=== PATIENT | male | born 1945 | race Hispanic/Latino ===

== ENCOUNTER 2019-03-12 07:27 | Day surgery (SDC) | payer MEDICARE ==
[~2019-03-12] VITALS: Ht 162.6 cm; Wt 93.9 kg
[~2019-03-12 07:27] MED LIST: ALLOPURINOL300 MG PO; AMARYL4 MG PO; ASPIRIN EC325 MG PO; ELIQUIS5 MG PO; FLECAINIDE ACE100 MG PO; LANSOPRAZOLE30 M1 PO; LASIX20 MG PO; LEVOTHYROXINE150 MCG PO; LIPITOR20 MG PO; MAGNESIUM400 M1 PO; METFORMIN HCL1000 MG PO; METFORMIN HCL500 M2 PO; METFORMIN HCL750 MG PO; METOPROLOL TART50 MG PO; MOTRIN IB200 MG PO; MULTI VITAMIN1 EACH PO; NITROGLYCERIN0.4 MG SL; NORCO 5-325 TA1 EACH PO; OMEPRAZOLE20 MG PO; PRAVASTATIN SOD40 MG PO; PREDNISONE20 MG PO; PREVACID30 MG PO; TYLENOL325 MG PO; VENTOLIN HFA18 GM INH
[2019-03-12] MEDS ORDERED: ELIQUIS5 MG PO (07:45)
--- NOTE | 2019-03-12 09:58 | NUR ---
03/12/19 0958 Elif Hernandez 0947- PT ARRIVES TO PACU NONAROUSABLE TO NOXIOUS STIMULI WITH AN OPA IN PLACE. RESP EVEN AND UNLABORED. OXYGEN SAT HIGH 90'S TO 100% ON 10L VIA MASK. 0949- OXYGEN TITRATED DOWN TO 6L VIA MASK. 0950- PT AROUSABLE AND TRYING TO PULL OUT OPA. PT INSTRUCTIONS TO OPEN HIS MOUTH TO REMOVE THE OPA. PT IS ABLE TO FOLLOW THIS COMMAND AND OPA REMOVED. 0957- PT ATTEMPTED TO USE A URINAL TO URINATE WITHOUT SUCCESS. PT REPORTS ABD CRAMPING. EDUCATED TO PASS FLATUS. PT STATES UNDERSTANDING.
--- NOTE | 2019-03-12 14:36 | EKG ---
[facility] [address] [facility] [place], [place] [address] Signed Sinus bradycardia Otherwise normal ECG Confirmed by CARY BUSTAMANTE MD ([id number]) on 03/12/2019 2:36:26 PM Electronically Signed By: CARY BUSTAMANTE MD 03/12/19 1436 PATIENT NAME: ASHLEY ROCHA Electrocardiogram DATE OF : 43 PHYSICIAN: CARY BUSTAMANTE MD REPORT #: [id number] REPORT IS CONFIDENTIAL AND NOT TO BE RELEASED WITHOUT AUTHORIZATION
--- NOTE | 2019-03-12 17:27 | OR ---
[facility] [address] [place], [place] [address] Signed DATE OF OPERATION: 03/12/2019 SURGEON: Anabelle Clark MD PREOPERATIVE DIAGNOSIS: Diarrhea. No prior colonoscopy. POSTOPERATIVE DIAGNOSIS: Multiple polyps (nine). PROCEDURE: Total colonoscopy to cecum with mucosal lift/tattoo snare excision x3, hot snare polypectomy x3, and cold morcellation polypectomy x3. ANESTHESIA: Propofol infusion; Anabelle Gonzalez CRNA. INDICATION: This 73-year-old white man (Basque in culture) is a patient of Nico Sam and known to me from the past for various other problems. He is considered to have diarrhea and is uncertain if this might be related to metformin. He has no known family history of colon cancer, though his mother had liver cancer of some type in the past. The patient has never had colonoscopy. On the basis of his symptoms and no prior history of colonoscopy, he is referred for consideration of colonoscopy. The risks of bleeding, infection, and perforation were reviewed with him. He understands and wished to proceed. FINDINGS: The prep was good. Complete colonoscopy was undertaken to the cecum. He had a multitude of polyps most dominantly in the right and right transverse area. A few scattered polyps were on the left side. There was no sign of colitis. He did have some internal hemorrhoidal changes. DESCRIPTION OF PROCEDURE: The patient was brought to the endoscopy suite and placed in lateral decubitus position, given intravenous sedation with propofol infusional technique by the front office administrator. A digital rectal examination was normal. The Olympus video colonoscope was passed in the rectum and manipulated throughout the colon. The scope was ultimately passed to the cecum. The ileocecal valve and Electronically Signed By: ANABELLE CLARK MD 03/12/19 1727 PATIENT NAME: ASHLEY ROCHA OPERATIVE REPORT DATE OF : 43 REPORT #: [id number] PHYSICIAN: ANABELLE CLARK MD PCP: NICO SAM MD REPORT IS CONFIDENTIAL AND NOT TO BE RELEASED WITHOUT AUTHORIZATION [facility] [address] [place], [place] [address] Signed appendiceal orifice were normal. Scope was withdrawn from that point and polyps were noted in the right colon. Initial polyp was excised with hot snare polypectomy technique. A hemoclip was applied for oozing. Two additional polyps were then seen, both larger and excised with hot snare polypectomy technique. At the region of hepatic flexure, there were three separate polyps, one of them broad-based. All were treated with mucosal lift technique including endoscopic tattoo mucosal lift and hot snare polypectomy technique. Further withdrawal of scope showed another polyp in the right transverse colon, which was excised with cold morcellation technique. Two additional polyps, one in the sigmoid and another in the sigmoid were excised with cold morcellation technique. In aggregate, nine polyps were excised. The scope was removed. The patient was taken to recovery room in good condition. Procedure was rather lengthy, lasting an hour. ASSESSMENT: Multiple polyps. I would recommend repeat colonoscopy in one year to assess any missed polyps given the extent of problems. MD JAXON Martines/NEEL /[id number] cc: Nico Sam MD Copies: ~ Electronically Signed By: ANABELLE CLARK MD 03/12/19 1727 PATIENT NAME: ASHLEY ROCHA OPERATIVE REPORT DATE OF : 43 REPORT #: [id number] PHYSICIAN: ANABELLE CLARK MD PCP: NICO SAM MD REPORT IS CONFIDENTIAL AND NOT TO BE RELEASED WITHOUT AUTHORIZATION
--- NOTE | 2019-03-13 11:19 | PATH ---
[facility] [address] [facility] [place], [place] [address] Signed SPECIMEN(S): A ASCENDING POLYP SPECIMEN(S): B ASCENDING POLYP SPECIMEN(S): C ASCENDING POLYP SPECIMEN(S): D HEPATIC FLEXURE SPECIMEN(S): E HEPATIC FLEXURE SPECIMEN(S): F HEPATIC FLEXURE SPECIMEN(S): G TRANSVERSE POLYP SPECIMEN(S): H SIGMOID POLYP SPECIMEN(S): I SIGMOID POLYP SPECIMEN SOURCE: A. ASCENDING POLYP B. ASCENDING POLYP C. ASCENDING POLYP D. HEPATIC FLEXURE E. HEPATIC FLEXURE F. HEPATIC FLEXURE G. TRANSVERSE POLYP H. SIGMOID POLYP I. SIGMOID POLYP CLINICAL HISTORY: Diarrhea. Post op: Multiple polyps. MICROSCOPIC DESCRIPTION: Histologic sections of all submitted blocks are examined by light microscopy. These findings, together with the gross examination, support the pathologic diagnosis. FINAL PATHOLOGIC DIAGNOSIS: A. Colon, ascending, polyp, polypectomy: - Tubular adenoma. - Negative for high-grade dysplasia or malignancy. B. Colon, ascending, polyp, polypectomy: - Fragments of tubular adenoma. - Negative for high-grade dysplasia or malignancy. C. Colon, ascending, polyp, polypectomy: - Fragments of tubular adenoma. - Negative for high-grade dysplasia or malignancy. D. Colon, hepatic flexure, polyp, polypectomy: - Tubular adenoma. - Negative for high-grade dysplasia or malignancy. PATIENT NAME: ASHLEY ROCHA PATHOLOGY DATE OF : 43 REPORT #: [id number] PHYSICIAN: DOUGLAS HEREDIA PCP: BRENT SAM MD REPORT IS CONFIDENTIAL AND NOT TO BE RELEASED WITHOUT AUTHORIZATION [facility] [address] [place], [place] [address] Signed E. Colon, hepatic flexure, polyp, polypectomy: - Tubular adenoma. - Negative for high-grade dysplasia or malignancy. F. Colon, hepatic flexure, polyp, polypectomy: - Fragments of tubular adenoma. - Negative for high-grade dysplasia or malignancy. G. Colon, transverse, polyp, polypectomy: - Tubular adenoma. - Negative for high-grade dysplasia or malignancy. H. Colon, sigmoid, polyp, polypectomy: - Fragment of tubular adenoma. - Negative for high-grade dysplasia or malignancy. I. Colon, sigmoid, polyp, polypectomy: - Tubular adenoma. - Negative for high-grade dysplasia or malignancy. NAL:cml:C2NR GROSS DESCRIPTION: Nine specimens are received in nine containers, labeled "JZ." A. The specimen, labeled "JZ, #1 and ascending polyp on the requisition," is received in formalin and consists of a 0.6 x 0.4 x 0.3 cm, soft pink, smooth, polypoid portion of tissue that is submitted in toto in cassette (A1). B. The specimen, labeled "JZ, #2 and ascending polyp on the requisition," is received in formalin and consists of two soft pink, smooth polypoid portions of tissue that measure 0.3 x 0.2 x 0.2 cm and 0.5 x 0.4 x 0.3 cm. The specimen is submitted in toto in cassette (B1). C. The specimen, labeled "JZ, #3 and ascending polyp on the requisition," is received in formalin and consists of three soft pink, smooth irregular portions of tissue that vary from 0.3 x 0.2 x 0.2 cm to 0.5 x 0.4 x 0.3 cm. The specimen is submitted in toto in cassette (C1). D. The specimen, labeled "RAMESH, #4 and hepatic flexure on the requisition," is received in formalin and consists of a 0.8 x 0.6 x 0.5 cm, soft pale red smooth, polypoid portion of tissue that is marked with blue ink, bisected, and entirely submitted in cassette (D1). E. The specimen, labeled "JZ, #5 and hepatic flexure," is received in formalin and consists of a 0.4 cm, soft pink tissue fragment that is submitted in toto in cassette (E1). F. The specimen, labeled "RAMESH, #6 and hepatic flexure on the requisition," is received in formalin and consists of three, soft pink to wood, smooth, polypoid PATIENT NAME: ASHLEY ROCHA PATHOLOGY DATE OF : 43 REPORT #: [id number] PHYSICIAN: DOUGLAS PATHOLOGY PCP: BRENT SAM MD REPORT IS CONFIDENTIAL AND NOT TO BE RELEASED WITHOUT AUTHORIZATION [facility] [address] [place], [place] [address] Signed portions of tissue that vary from 0.3 x 0.2 x 0.2 cm to 0.5 x 0.4 x 0.3 cm. The specimen is submitted in toto in cassette (F1). G. The specimen, labeled "JZ, #7 and transverse polyp on the requisition," is received in formalin and consists of a 0.4 x 0.3 x 0.2 cm soft, pale red, smooth, polypoid portion of tissue that is submitted in toto in cassette (G1) H. The specimen, labeled "JZ, #8 and sigmoid polyp on the requisition," is received in formalin and consists of a 0.6 x 0.4 x 0.4 cm, soft pink, smooth, polypoid portion of tissue along with a 0.2 cm soft wood tissue fragment. The specimen is entirely submitted in cassette (H1). I. The specimen, labeled "JZ, #9 and sigmoid polyp on the requisition," is received in formalin and consists of a 0.4 x 0.3 x 0.2 cm, soft, pale red, smooth, polypoid portion of tissue that is submitted in toto in cassette (I1). SS (under the direct supervision of a pathologist) The Gross Description was prepared using a voice recognition system. The report was reviewed for accuracy; however, sound-alike word errors, addition and/or deletions may occur. If there is any question about this report, please contact Client Services. PERFORMING LABORATORY: The technical component was performed by [employer] [address] (Towboat Operator: Ewa Rondon MD; CLIA# [id number]). Professional interpretation [facility] [address] [place] [address] (Towboat Operator: Catalino Stevens MD; CLIA# [id number]). Diagnostician: Anat Flores MD Pathologist Electronically Signed 03/13/2019 Copies: ~ PATIENT NAME: ASHLEY ROCHA PATHOLOGY DATE OF : 43 REPORT #: [id number] PHYSICIAN: DOUGLAS HEREDIA PCP: BRENT SAM MD REPORT IS CONFIDENTIAL AND NOT TO BE RELEASED WITHOUT AUTHORIZATION
== END 2019-03-12 10:40 | disposition home or self-care (01) ==
LOC: DS 07:27 → OPS 07:27
PROVIDERS: Surgery
PROC: 0DBL8ZZ Excision of Transverse Colon, Via Natural or Artificial Opening Endoscopic (ICD-10-PCS; 2019-03-12)
PROC: 0DBN8ZZ Excision of Sigmoid Colon, Via Natural or Artificial Opening Endoscopic (ICD-10-PCS; 2019-03-12)
PROC: 3E0H8GC Introduction of Other Therapeutic Substance into Lower GI, Via Natural or Artificial Opening Endoscopic (ICD-10-PCS; 2019-03-12)
PROC: 0DBK8ZZ Excision of Ascending Colon, Via Natural or Artificial Opening Endoscopic (ICD-10-PCS; principal; 2019-03-12 07:30)
DX: D12.2 Benign neoplasm of ascending colon (principal); D12.3 Benign neoplasm of transverse colon; D12.5 Benign neoplasm of sigmoid colon; R19.7 Diarrhea, unspecified; C44.629 Squamous cell carcinoma of skin of left upper limb, including shoulder; K21.0 Gastro-esophageal reflux disease with esophagitis; E11.9 Type 2 diabetes mellitus without complications; I11.9 Hypertensive heart disease without heart failure; J44.9 Chronic obstructive pulmonary disease, unspecified; G47.30 Sleep apnea, unspecified; Z79.01 Long term (current) use of anticoagulants; Z79.899 Other long term (current) drug therapy; Z79.84 Long term (current) use of oral hypoglycemic drugs
CPT/HCPCS: 93005; 93010; J2704; J7121

== ENCOUNTER 2020-12-01 07:30 | Day surgery (SDC) | payer MEDICARE, BC ==
[~2020-12-01] VITALS: Ht 162.6 cm; Wt 98.6 kg
[~2020-12-01 07:30] MED LIST changes: +FLECAINIDE ACET50 MG PO; +FUROSEMIDE20 MG PO; +GLUCOPHAGE500 MG PO; +LEVOTHYROXINE137 MCG PO; +LOPERAMIDE2 MG PO; +LOSARTAN POTASS25 MG PO; +METFORMIN HCL500 MG PO; +METOPROLOL SUCC25 MG PO; +OMEPRAZOLE40 MG PO; +SLOW-MAG71.5 MG PO; +[UNRECOGNIZED DRUG - OTHER] PO
--- NOTE | 2020-12-01 10:05 | NUR ---
12/01/20 1005 Melvi Son 1000 PATIENT ARRIVES TO PACU RESTING WITH EYES CLOSED. OPENS EYES WITH VERBAL STIMULI. RESP EVEN AND UNLABORED, ORAL AIRWAY IN PLACE, OXYMASK AT 6 LITERS, ORAL AIRWAY REMOVED. 1004 PATIENT MOANING AT TIMES, GRABBING ABD. ENCOURAGED PATIENT TO PASS GAS. RESP EVEN AND UNLABORED, OXYMASK CONTINUES AT 6 LITERS, SATS > THAN 97%.
--- NOTE | 2020-12-01 15:06 | OR ---
[facility] [address] [place], [place] [address] Signed DATE OF OPERATION: 12/01/2020 SURGEON: Anabelle Clark MD PREOPERATIVE DIAGNOSES: 1. History of colonic polyps, currently asymptomatic. 2. Multiple medical problems including sleep apnea, chronic anticoagulation (Eliquis and others including obesity). POSTOPERATIVE DIAGNOSIS: Polyps x3. PROCEDURE: Total colonoscopy to cecum with hot snare polypectomy x2 and cold morcellation polypectomy x1. ANESTHESIA: Intravenous sedation, propofol infusion. Anabelle Gonzalez CRNA. INDICATIONS: This 75-year-old white man is a patient of Dr. Sam and well known to me from the past. He underwent colonoscopy in March 2019, where he was found to have 9 adenomatous type polyps. He currently has diarrhea, but this was attributed to his metformin. He has numerous other medical problems including obesity, sleep apnea on chronic anticoagulation with Eliquis as well as hypothyroidism, atrial fibrillation, and chronic obstructive lung disease, he is admitted at this time to undergo surveillance colonoscopy based on the numerous polyps previously identified. The risks of bleeding, infection, and perforation related to colonoscopy was reviewed in detail. He understands and wished to proceed. FINDINGS: The prep was adequate. Complete colonoscopy was undertaken to the cecum. He had three polyps, two in the splenic flexure, one in the sigmoid, all excised completely. DESCRIPTION OF PROCEDURE: The patient was brought to the endoscopy suite and placed in lateral decubitus position, given intravenous sedation with propofol infusional technique under the direction of the sustainable landscape architect with full cardiopulmonary monitoring. Digital rectal examination was normal. Electronically Signed By: ANABELLE CLARK MD 12/01/20 1506 PATIENT NAME: ASHLEY ROCHA OPERATIVE REPORT DATE OF : 43 REPORT #: [id number] PHYSICIAN: ANABELLE CLARK MD PCP: BRENT SAM MD REPORT IS CONFIDENTIAL AND NOT TO BE RELEASED WITHOUT AUTHORIZATION [facility] [address] [place], [place] [address] Signed The Olympus video colonoscope was passed in the rectum and manipulated throughout the colon. The prep was considered adequate. The irrigation was needed from time to time. There was no solid formed stool. The scope was locally advanced to the cecum, which was normal. Scope was withdrawn from that point and examination throughout showed no sign of abnormality until the splenic flexure where there was a moderate-sized adenomatous appearing sessile polyp, this was excised with hot snare polypectomy technique. The polyp was too large to extract through the channel of the scope and another small polyp nearby was excised with cold morcellation technique. The smaller polyp was extracted through the channel of the scope, the larger placed in a Gutierrez net and withdrawn and offloaded. The scope was reintroduced up to the point of the splenic flexure where good hemostasis was noted at the polypectomy site. The scope was further withdrawn and there was another sessile polyp of the sigmoid, this was excised with hot snare technique without problem and passed for pathology. Further withdrawal of scope showed no other abnormalities. Scope was removed and the patient was taken to the recovery room in good condition. CONCLUDING DIAGNOSIS: Polyps x3. PLAN: Recommend a repeat colonoscopy in 5 years sooner if symptoms should occur. He will return to the ongoing care of Dr. Sam. Anabelle Clark MD JM/MODL /[id number] cc: Dr. Sam Copies: ~ Electronically Signed By: ANABELLE CLARK MD 12/01/20 1506 PATIENT NAME: RASHAD TORRESENDARIZASHLEY OPERATIVE REPORT DATE OF : 43 REPORT #: [id number] PHYSICIAN: ANABELLE CLARK MD PCP: BRENT SAM MD REPORT IS CONFIDENTIAL AND NOT TO BE RELEASED WITHOUT AUTHORIZATION
== END 2020-12-01 10:40 | disposition home or self-care (01) ==
LOC: OPS 07:30 → DS 07:30 → OPS 08:45
PROVIDERS: ATTEND Surgery
PROC: 0DBL8ZZ Excision of Transverse Colon, Via Natural or Artificial Opening Endoscopic (ICD-10-PCS; 2020-12-01)
PROC: 0DBL8ZZ Excision of Transverse Colon, Via Natural or Artificial Opening Endoscopic (ICD-10-PCS; principal; 2020-12-01 08:45)
DX: Z12.11 Encounter for screening for malignant neoplasm of colon (principal); D12.3 Benign neoplasm of transverse colon; E03.9 Hypothyroidism, unspecified; E66.9 Obesity, unspecified; I48.91 Unspecified atrial fibrillation; K21.00 Gastro-esophageal reflux disease with esophagitis, without bleeding; G47.30 Sleep apnea, unspecified; J44.9 Chronic obstructive pulmonary disease, unspecified; Z79.01 Long term (current) use of anticoagulants; Z79.84 Long term (current) use of oral hypoglycemic drugs; Z68.37 Body mass index [BMI] 37.0-37.9, adult
CPT/HCPCS: 88305; J2704; J7121

== ENCOUNTER 2022-01-22 14:47 | Emergency (ER) | payer MEDICARE, BC ==
[~2022-01-22] VITALS: Ht 162.6 cm; Wt 98.4 kg
[2022-01-22] MEDS ORDERED: MOTION SICKNESS25 M1 PO (18:07)
--- NOTE | 2022-01-23 20:57 | EKG ---
[facility] [address] [place] [address] Signed Sinus bradycardia with 1st degree AV block Otherwise normal ECG When compared with ECG of 28-NOV-2020 09:42, [place] interval has increased Confirmed by Sigifredo Alvarez MD () on 01/23/2022 8:57:47 PM Electronically Signed By: SIGIFREDO ALVAREZ MD 01/23/222056 PATIENT NAME: ASHLEY ROCHA Electrocardiogram DATE OF : 43 PHYSICIAN: SIGIFREDO ALVAREZ MD REPORT #: [id number] REPORT IS CONFIDENTIAL AND NOT TO BE RELEASED WITHOUT AUTHORIZATION
== END 2022-01-22 18:19 | disposition home or self-care (01) ==
LOC: ED 14:47
DX: R55 Syncope and collapse (principal); S09.90XA Unspecified injury of head, initial encounter; R42 Dizziness and giddiness; I48.91 Unspecified atrial fibrillation; E11.9 Type 2 diabetes mellitus without complications; E78.00 Pure hypercholesterolemia, unspecified; G47.30 Sleep apnea, unspecified; I10 Essential (primary) hypertension; E89.0 Postprocedural hypothyroidism; W19.XXXA Unspecified fall, initial encounter; Z86.718 Personal history of other venous thrombosis and embolism; Z79.899 Other long term (current) drug therapy; Z79.84 Long term (current) use of oral hypoglycemic drugs
CPT/HCPCS: 36415; 70450; 80053; 84484; 85025; 93005; 93010; 99284-25; A9270

== ENCOUNTER 2022-09-27 15:43 | Emergency (ER) | payer MEDICARE, BC ==
[~2022-09-27] VITALS: Ht 162.6 cm; Wt 98.4 kg
[~2022-09-27 15:43] MED LIST changes: +MOTION SICKNESS25 M1 PO
--- OUTSIDE RECORDS SUMMARY | 2022-09-27 15:44 | XMS ---
PreManage Notification: ASHLEY ROCHA Security D[employer] Machine Feeder Events No recent Security Events currently on file [facility] There are no care providers on record at this time. Lyudmila has no Care Guidelines for this patient. Cheri VISIT COUNT (12 MO.) 2 REMBERTO Grady TOTAL 2 NOTE: Visits indicate total known visits. ED/C VISIT TRACKING (12 MO.) 09/27/2022 15:43 [facility]ae [place] TYPE: Emergency COMPLAINT: - SOB 01/22/2022 14:[address] [facility] [place] TYPE: Emergency COMPLAINT: - FALL, HEAD INJURY DIAGNOSES: - Dizziness and giddiness - Essential (primary) hypertension - Hypothyroidism, unspecified - long term care phlebotomist (current) use of anticoagulants - custodial (current) use of oral hypoglycemic drugs - Other usp (current) drug therapy - Personal history of nicotine dependence - Personal history of other venous thrombosis and embolism - Postprocedural hypothyroidism - Pure hypercholesterolemia, unspecified - Sleep apnea, unspecified - Syncope and collapse - Type 2 diabetes mellitus without complications - Unspecified atrial fibrillation - Unspecified fall, initial encounter - Unspecified injury of head, initial encounter INPATIENT VISIT TRACKING (12 MO.) No inpatient visits to display in this time frame [email or web address]
[2022-09-27] MEDS ORDERED: FUROSEMIDE40 MG PO (16:00)
[2022-09-27] MEDS ORDERED: MAGNESIUM400 MG PO (16:01)
[2022-09-27] MEDS ORDERED: DAILY VITAMIN1 EAC3 PO (16:03)
[2022-09-27] MEDS ORDERED: FLUTICASONE PRO16 GM NAS (16:03)
[2022-09-27 18:28] VITALS: BP 126/76
--- NOTE | 2022-09-28 06:29 | EKG ---
[facility] [address] [facility] [place] [address] Signed Sinus rhythm with marked sinus arrhythmia with occasional premature ventricular complexes Otherwise normal ECG When compared with ECG of 22-JAN-2022 16:25, premature ventricular complexes are now present Confirmed by FELICIA NICOLE MD ([id number]) on 09/28/2022 6:29:39 AM Electronically Signed By: FELICIA NICOLE 09/28/22 0629 PATIENT NAME: ASHLEY ROCHA Electrocardiogram DATE OF : 43 PHYSICIAN: FELICIA NICOLE REPORT #: [id number] REPORT IS CONFIDENTIAL AND NOT TO BE RELEASED WITHOUT AUTHORIZATION
== END 2022-09-27 18:29 | disposition home or self-care (01) ==
LOC: ED 15:43
DX: E83.42 Hypomagnesemia (principal); R00.2 Palpitations; E11.9 Type 2 diabetes mellitus without complications; E78.00 Pure hypercholesterolemia, unspecified; I48.0 Paroxysmal atrial fibrillation; I10 Essential (primary) hypertension; E03.9 Hypothyroidism, unspecified; G47.30 Sleep apnea, unspecified; Z20.822 Contact with and (suspected) exposure to COVID-19; Z86.718 Personal history of other venous thrombosis and embolism; Z79.01 Long term (current) use of anticoagulants; Z79.84 Long term (current) use of oral hypoglycemic drugs; Z79.899 Other long term (current) drug therapy; Z87.891 Personal history of nicotine dependence
CPT/HCPCS: 36415; 71045; 80053; 83735; 83880; 84484; 85025; 87502; 93005; 93010; 96374; 99285 25; C9803; J3475; U0002

== ENCOUNTER 2023-12-11 09:47 | Inpatient (IN) | payer MEDICARE, BC ==
[2023-12-11] VITALS (7 sets, daily range): BP systolic 94–144; BP diastolic 57–87
[~2023-12-11] VITALS: Ht 162.6 cm; Wt 93.3 kg
[~2023-12-11 09:47] MED LIST changes: -AMARYL4 MG PO; +DAILY VITAMIN1 EAC3 PO; +FLUTICASONE PRO16 GM NAS; +FUROSEMIDE40 MG PO; +GLIMEPIRIDE4 MG PO; +MAGNESIUM400 MG PO
[2023-12-11] MEDS ORDERED: MAGNESIUM SULFATE 2 GM/50 ML BAG IV ONE ×2 (10:45→12:00)
[2023-12-11 11:04] LABS: MAGNESIUM 0.3 mg/dL (1.8-2.4)
[2023-12-11 11:40] LABS: ALBUMIN 3.4 g/dL (3.4-5.0); ALBUMIN/GLOBULIN RATIO 0.94 (1.1-2.4); ANION GAP 16.9 (7-21); BILIRUBIN, TOTAL 0.8 ng/dL (0.2-1.0); BUN/CREATININE RATIO 9.56 (6.0-28.6); CREATININE, SERUM 1.15 mg/dL (0.70-1.30); POTASSIUM 2.9 mmol/L (3.5-5.1)
[2023-12-11 11:41] LABS: CALCIUM 6.1 mg/dL (8.5-10.1)
[2023-12-11] MEDS ORDERED: POTASSIUM CHLORIDE 10 MEQ/100 ML BAG IV SCH (12:00)
[2023-12-11] MEDS ORDERED: CALCIUM GLUCONATE 1,000 MG/10 ML VIAL IV ONE (12:30)
[2023-12-11] MEDS ORDERED: HYDROmorphone HCL 1 MG/ML SYR IV PRN (12:45)
[2023-12-11] MEDS ORDERED: OXYCODONE HCL 5 MG TAB PO PRN (13:15)
[2023-12-11 13:39] LABS: BILIRUBIN, URINE POSITIVE (negative); BLOOD/HGB, URINE NEGATIVE (Negative); KETONE, URINE TRACE (Negative); LEUK ESTERASE, URINE NEGATIVE (negative); NITRITE, URINE NEGATIVE (negative)
[2023-12-11] MEDS ORDERED: NITROGLYCERIN 0.4 MG SUBL ONE ×2 (13:45→13:46)
[2023-12-11] MEDS ORDERED: DEXTROSE 5% 1,000 ML IV PRN (13:45)
[2023-12-11] MEDS ORDERED: GLUCAGON,HUMAN RECOMBINANT 1 MG/ML VIAL SUB-Q PRN (13:45)
[2023-12-11] MEDS ORDERED: DEXTROSE 50% 50 ML SYR IV PRN ×2 (13:45)
[2023-12-11] MEDS ORDERED: IBLOOD GLUCOSE TEST STRIP 1 EA TEST XX PRN (13:45)
[2023-12-11 13:50] LABS: BACTERIA, URINE RARE /hpf (negative); CASTS, URINE NONE SEEN \\lpf; COLLECTION TYPE, URINE CLEAN CATCH; CRYSTALS, URINE NONE SEEN (0-1+); EPITHELIAL CELLS, URINE SQUAMOUS 1+ /lpf (0-1+); RED BLOOD CELLS, URINE 0-1 /hpf (0-5); REFLEX CULTURE, URINE No (No); WHITE BLOOD CELLS, URINE 0-1 /HPF (0-5)
[2023-12-11] MEDS ORDERED: MAGNESIUM SULFATE 2 GM/50 ML BAG IV SCH (14:00)
[2023-12-11] MEDS ORDERED: NITROGLYCERIN 0.4 MG SUBL SL PRN (14:00)
[2023-12-11] MEDS ORDERED: POTASSIUM CHLORIDE 10 MEQ TABCR PO STA (14:08)
[2023-12-11] MEDS ORDERED: ALBUTEROL SULFATE 0.083% 3 ML VIAL INH PRN (14:30)
[2023-12-11] MEDS ORDERED: METOPROLOL SUCCINATE 25 MG TABCR PO SCH (15:22)
[2023-12-11] MEDS ORDERED: FLECAINIDE ACETATE 50 MG TAB PO SCH (15:30)
--- NOTE | 2023-12-11 16:19 | EKG ---
[facility] [address] [facility] [place] [address] Signed Sinus bradycardia with premature atrial complexes Nonspecific ST and T wave abnormality Abnormal ECG No previous ECGs available Confirmed by Rome Dunn MD ([id number]) on 12/11/2023 4:19:27 PM Electronically Signed By: ROME DUNN MD 12/11/23 1619 PATIENT NAME: ASHLEY ROCHA Electrocardiogram DATE OF : 43 PHYSICIAN: ROME DUNN MD REPORT #: [id number] REPORT IS CONFIDENTIAL AND NOT TO BE RELEASED WITHOUT AUTHORIZATION
--- NOTE | 2023-12-11 16:19 | EKG ---
[facility] [address] [facility] [place] [address] Signed Atrial fibrillation Nonspecific ST and T wave abnormality Prolonged QT Abnormal ECG When compared with ECG of 27-SEP-2022 15:47, Atrial fibrillation has replaced Sinus rhythm T wave inversion now evident in Inferior leads Nonspecific T wave abnormality now evident in Lateral leads QT has lengthened Confirmed by Rome Dunn MD ([id number]) on 12/11/2023 4:18:51 PM Electronically Signed By: ROME DUNN MD 12/11/23 1619 PATIENT NAME: ASHLEY ROCHA Electrocardiogram DATE OF : 43 PHYSICIAN: ROME DUNN MD REPORT #: [id number] REPORT IS CONFIDENTIAL AND NOT TO BE RELEASED WITHOUT AUTHORIZATION
[2023-12-11] MEDS ORDERED: INSULIN LISPRO 100 UNIT/ML ML SUB-Q SCH (17:00)
[2023-12-11] MEDS ORDERED: MAGNESIUM HYDROXIDE/AL HYDROX 30 ML CUP PO PRN (17:00)
[2023-12-11] MEDS ORDERED: IBLOOD GLUCOSE TEST STRIP 1 EA TEST VI SCH (17:00)
[2023-12-11] MEDS ORDERED: FUROSEMIDE20 MG PO (18:02)
[2023-12-11 18:21] LABS: ALBUMIN 3.3 g/dL (3.4-5.0); ALBUMIN/GLOBULIN RATIO 0.92 (1.1-2.4); ANION GAP 14.3 (7-21); BILIRUBIN, TOTAL 0.8 ng/dL (0.2-1.0); BUN/CREATININE RATIO 10.75 (6.0-28.6); CALCIUM 6.9 mg/dL (8.5-10.1); CREATININE, SERUM 0.93 mg/dL (0.70-1.30); MAGNESIUM 2.7 mg/dL (1.8-2.4); POTASSIUM 3.3 mmol/L (3.5-5.1); PROTEIN, TOTAL 6.9 g/dL (6.4-8.2)
[2023-12-11] MEDS ORDERED: IRON325 M1 PO (18:34)
[2023-12-11] MEDS ORDERED: VITAMIN D325 MCG PO (18:37)
[2023-12-11] MEDS ORDERED: Calcium Gluconate in NS 1,000 MG/50 ML BAG IV ONE (18:45)
[2023-12-11] MEDS ORDERED: APIXABAN 5 MG TAB PO SCH (21:00)
[2023-12-11] MEDS ORDERED: LACTATED RINGER'S 1,000 ML IV SCH (21:15)
[2023-12-12] VITALS (18 sets, daily range): BP systolic 109–138; BP diastolic 55–85
[2023-12-12 06:03] LABS: BASOPHILS 0.5 % (0-2); EOSINOPHILS 0.1 % (0-6); HEMATOCRIT 37.5 % (35.0-50.0); HEMOGLOBIN 11.9 g/dL (12.0-18.0); LYMPHOCYTES 11.9 % (24-44); MCH 24.9 (27-36); MCHC 31.6 g/dl (30-36); MCV 78.7 fl (81-99); MONOCYTES 8.8 % (0-12); NEUTROPHILS 78.7 % (39-80); PLATELET COUNT 195 K/uL (140-440); RBC 4.77 M/ul (4.3-5.7); RDW 16.1 (10.5-15.0)
[2023-12-12 06:20] LABS: ALBUMIN 3.1 g/dL (3.4-5.0); ALBUMIN/GLOBULIN RATIO 0.79 (1.1-2.4); BILIRUBIN, TOTAL 0.9 ng/dL (0.2-1.0); BUN/CREATININE RATIO 11.21 (6.0-28.6); CALCIUM 7.4 mg/dL (8.5-10.1); CREATININE, SERUM 1.07 mg/dL (0.70-1.30); MAGNESIUM 2.5 mg/dL (1.8-2.4); PHOSPHORUS, INORGANIC 4.4 mg/dL (2.5-4.9)
[2023-12-12] MEDS ORDERED: LEVOTHYROXINE SODIUM 137 MCG TAB PO SCH (07:00)
[2023-12-12] MEDS ORDERED: Calcium Gluconate in NS 1,000 MG/50 ML BAG IV ONE (08:15)
[2023-12-12] MEDS ORDERED: PHARMACY RENAL DOSE ADJUSTMENT 1 DOSE MISC PO SCH (12:00)
[2023-12-12] MEDS ORDERED: THIAMINE HCL 100 MG TAB PO SCH (18:42)
[2023-12-12] MEDS ORDERED: LORazepam 2 MG/ML VIAL IV/IM PRN (18:45)
[2023-12-12] MEDS ORDERED: LORazepam 1 MG TAB PO PRN (18:45)
[2023-12-12] MEDS ORDERED: LIDOCAINE HCL 4% 1 EACH PATCH TD ONE ×2 (19:00→21:53)
[2023-12-12] MEDS ORDERED: MICONAZOLE NITRATE 1 EA BTL TOP SCH (21:00)
[2023-12-12] MEDS ORDERED: LIDOCAINE PATCH REMOVAL 1 EA TD SCH (21:00)
[2023-12-13] VITALS (12 sets, daily range): BP systolic 110–164; BP diastolic 50–71
[2023-12-13 05:45] LABS: BASOPHILS 0.5 % (0-2); EOSINOPHILS 0.2 % (0-6); HEMATOCRIT 32.2 % (35.0-50.0); HEMOGLOBIN 10.3 g/dL (12.0-18.0); LYMPHOCYTES 8.8 % (24-44); MCH 25.1 (27-36); MCHC 32.1 g/dl (30-36); MCV 78.4 fl (81-99); NEUTROPHILS 81.5 % (39-80); PLATELET COUNT 184 K/uL (140-440)
[2023-12-13 06:03] LABS: ALBUMIN 2.4 g/dL (3.4-5.0); ALBUMIN/GLOBULIN RATIO 0.65 (1.1-2.4); ANION GAP 12.3 (7-21); BUN/CREATININE RATIO 20.23 (6.0-28.6); CALCIUM 7.3 mg/dL (8.5-10.1); CREATININE, SERUM 0.84 mg/dL (0.70-1.30); PHOSPHORUS, INORGANIC 2.9 mg/dL (2.5-4.9); POTASSIUM 3.3 mmol/L (3.5-5.1); PROTEIN, TOTAL 6.1 g/dL (6.4-8.2)
[2023-12-13] MEDS ORDERED: POTASSIUM CHLORIDE 40 MEQ,LIDOCAINE HCL 1% 40 MG in DEXTROSE 5% 250 ML IV ONE (07:30)
[2023-12-13] MEDS ORDERED: Calcium Gluconate in NS 1,000 MG/50 ML BAG IV ONE (09:45)
[2023-12-13] MEDS ORDERED: SIMETHICONE 125 MG TABLET CHEWABLE PO PRN (17:45)
[2023-12-13] MEDS ORDERED: bisacodyL 10 MG SUPP PR ONE (21:00)
[2023-12-13] MEDS ORDERED: APIXABAN 5 MG TAB PO SCH (21:00)
[2023-12-13] MEDS ORDERED: METOCLOPRAMIDE HCL 10 MG/2 ML SDV IV PRN (21:00)
[2023-12-14] VITALS (12 sets, daily range): BP systolic 123–163; BP diastolic 62–80
[2023-12-14 05:22] LABS: BASOPHILS 0.5 % (0-2); EOSINOPHILS 0.4 % (0-6); HEMATOCRIT 30.3 % (35.0-50.0); HEMOGLOBIN 9.7 g/dL (12.0-18.0); LYMPHOCYTES 7.5 % (24-44); MCH 24.9 (27-36); MCHC 32.2 g/dl (30-36); MCV 77.2 fl (81-99); MONOCYTES 8.8 % (0-12); NEUTROPHILS 82.8 % (39-80); PLATELET COUNT 177 K/uL (140-440); RBC 3.92 M/ul (4.3-5.7); RDW 15.5 (10.5-15.0)
[2023-12-14 05:39] LABS: ALBUMIN 2.2 g/dL (3.4-5.0); ALBUMIN/GLOBULIN RATIO 0.56 (1.1-2.4); ANION GAP 10.2 (7-21); BILIRUBIN, TOTAL 0.8 ng/dL (0.2-1.0); BUN/CREATININE RATIO 24.41 (6.0-28.6); CALCIUM 7.7 mg/dL (8.5-10.1); CREATININE, SERUM 0.86 mg/dL (0.70-1.30); MAGNESIUM 1.9 mg/dL (1.8-2.4); PHOSPHORUS, INORGANIC 2.2 mg/dL (2.5-4.9); POTASSIUM 3.2 mmol/L (3.5-5.1); PROTEIN, TOTAL 6.1 g/dL (6.4-8.2)
[2023-12-14] MEDS ORDERED: POTASSIUM PHOSPHATE 30 MMOL in DEXTROSE 5% 500 ML IV ONE (07:45)
[2023-12-14] MEDS ORDERED: Calcium Gluconate in NS 1,000 MG/50 ML BAG IV ONE (07:45)
[2023-12-14] MEDS ORDERED: METOCLOPRAMIDE HCL 10 MG/2 ML SDV IV SCH (21:00)
[2023-12-15] VITALS (9 sets, daily range): BP systolic 138–160; BP diastolic 63–84
[2023-12-15 05:23] LABS: BASOPHILS 0.7 % (0-2); EOSINOPHILS 0.8 % (0-6); HEMOGLOBIN 10.4 g/dL (12.0-18.0); LYMPHOCYTES 11.5 % (24-44); MCH 24.3 (27-36); MCHC 31.4 g/dl (30-36); MCV 77.4 fl (81-99); MONOCYTES 10.5 % (0-12); NEUTROPHILS 76.5 % (39-80); PLATELET COUNT 225 K/uL (140-440); RBC 4.27 M/ul (4.3-5.7); RDW 15.5 (10.5-15.0)
[2023-12-15 05:48] LABS: ALBUMIN 2.2 g/dL (3.4-5.0); ALBUMIN/GLOBULIN RATIO 0.56 (1.1-2.4); ANION GAP 10.9 (7-21); BILIRUBIN, TOTAL 0.8 ng/dL (0.2-1.0); BUN/CREATININE RATIO 19.75 (6.0-28.6); CALCIUM 8.4 mg/dL (8.5-10.1); CREATININE, SERUM 0.81 mg/dL (0.70-1.30); MAGNESIUM 1.7 mg/dL (1.8-2.4); PHOSPHORUS, INORGANIC 2.2 mg/dL (2.5-4.9); POTASSIUM 2.9 mmol/L (3.5-5.1); PROTEIN, TOTAL 6.1 g/dL (6.4-8.2)
[2023-12-15] MEDS ORDERED: POTASSIUM PHOSPHATE 30 MMOL in DEXTROSE 5% 500 ML IV ONE (09:00)
[2023-12-15] MEDS ORDERED: MAGNESIUM SULFATE 2 GM/50 ML BAG IV ONE (09:00)
[2023-12-15] MEDS ORDERED: bisacodyL 10 MG SUPP PR SCH (11:18)
[2023-12-15] MEDS ORDERED: MAGNESIUM SULFATE 50 ML IV ONE (11:32)
--- NOTE | 2023-12-15 14:27 | CONS ---
[facility] [address] [place], [place] [address] Signed DATE OF CONSULTATION: 12/12/2023 REQUESTING PHYSICIAN: Dr. Rico. PROBLEM: Possible distal esophageal dysphagia. HISTORY OF PRESENT ILLNESS: This 78-year-old Basque [place]ian man is well known to me from the past having undergone total thyroidectomy by me, a number of years ago in 2013, for symptomatic cervical goiter. I last saw him in 2020, at which time he underwent colonoscopy and was found to have three polyps. He was admitted on December [address] Dunn with significant electrolyte disturbance including hypomagnesemia, hypokalemia and hypocalcemia. Indeed, his primary care provider referred him to the emergency room as he had profound hypomagnesemia. He has had longstanding chronic diarrhea, which was thought initially related to metformin, though discontinuance of the metformin did not particularly change his diarrhea. In his diarrhea workup, his routine labs were found to be quite profoundly abnormal. His potassium was 2.9, creatinine 1.15, calcium 6.1, magnesium 0.3, albumin 3.4. A chest x-ray that was performed at the time of admission showed mild cardiomegaly and pulmonary vascular congestion followed up by a chest CT angiogram, which showed no evidence of pulmonary embolism, but did show faint ground-glass nodular density in the posterior right upper lobe representing infectious or inflammatory disease and a somewhat fluid-filled esophagus with multiple radiodense structures in the distal esophagus likely considered to be ingested tablets or medication. There was a 2.9 cm peripherally enhancing lesion of the inferior hepatic segment 6, which was nonspecific and likely a hemangioma and uncomplicated gallstones. On the basis of the esophageal fluid, consultation was undertaken for possible dilation. I did tell Dr. Rico, to keep the patient n.p.o., so possible upper endoscopy could be performed. Upon presentation to him, it is noted that he is on apixaban anticoagulant and indeed he has been treated since hospitalization as well. His other medications include flecainide, metoprolol, Proventil, oxycodone, and more recent insulin I should say. The patient does describe cervical dysphagia. This was a complaint of his in 20 years ago at which time I saw him. He has undergone dilation of the esophagus at least once. He did have cervical dysphagia prior to his total thyroidectomy, but thyroidectomy did not appreciably improve that, though it was considered likely that it would at that time. Electronically Signed By: ANABELLE CLARK MD 12/15/23 1427 PATIENT NAME: ASHLEY ROCHA CONSULTATION DATE OF : 43 REPORT #: [id number] PHYSICIAN: ANABELLE CLARK MD PCP: VISH BETANCOURT MD REPORT IS CONFIDENTIAL AND NOT TO BE RELEASED WITHOUT AUTHORIZATION [address] [address] Signed The patient has had no hypersalivation and denies any dysphagia in the region of the xiphoid, but does have persistent and longstanding cervical dysphagia. He has had no hematemesis. FAMILY HISTORY: He has no known family history of esophageal cancer. He was admitted to the intensive care unit for correction of his electrolytes. LABORATORY STUDIES: Today his lab studies show a normal potassium of 4.0, creatinine 1.07, a magnesium of 2.5, and calcium is 7.4. His creatinine is 1.07, previously 0.93. His white count is 7.6, hematocrit 37.5. PHYSICAL EXAMINATION: GENERAL: An obese white man accompanied by his and stepdaughter. He is alert and oriented without signs of toxicity. HEENT: His trachea is midline. There is no crepitus. He has no hoarseness. There is no carotid bruit. CHEST: Clear. HEART: Generally regular at this time. ABDOMEN: Obese, protuberant and nontender. ASSESSMENT: The findings on CT scan of the chest had shown some fluid and possibly some retained pills in the distal esophagus. However, he has no clinical signs of distal dysphagia only long-standing cervical dysphagia, which shows no correlative anatomic abnormality. I would agree that upper endoscopy should be undertaken at some point to assess for a cause of possible distal dysphagia despite his minimal clinical symptoms related to that site. Upper endoscopy and possible dilation while anticoagulated would be contraindicated. As he does not have hypersalivation or anything to suggest total esophageal obstruction in fact, I do not think that he would require PCC for that purpose at this time. He has been admitted for correction of his electrolyte disorder, which is progressing well. It would probably be best to see him as an outpatient and arrange upper endoscopy at which point his apixaban can be withheld for at least 48 hours anticipating upper endoscopy and dilation if appropriate. I discussed this with Dr. Rico, who will further consider this. Electronically Signed By: ANABELLE CLARK MD 12/15/23 1427 PATIENT NAME: BEBO ROCHAQUAN Baugh CONSULTATION DATE OF : 43 REPORT #: [id number] PHYSICIAN: ANABELLE CLARK MD PCP: VISH BETANCOURT MD REPORT IS CONFIDENTIAL AND NOT TO BE RELEASED WITHOUT AUTHORIZATION [facility] [address] [place] [address] Signed Anabelle Clark MD /ANNIEL /[id number] cc: Dr. Trisha Betancourt MD Copies: VISH BETANCOURT MD ~ Electronically Signed By: ANABELLE CLARK MD 12/15/23 1427 PATIENT NAME: RASHAD ASHLEY JOHNSTON CONSULTATION DATE OF : 43 REPORT #: [id number] PHYSICIAN: ANABELLE CLARK MD PCP: VISH BETANCOURT MD REPORT IS CONFIDENTIAL AND NOT TO BE RELEASED WITHOUT AUTHORIZATION
[2023-12-16] VITALS (8 sets, daily range): BP systolic 139–156; BP diastolic 69–80
[2023-12-16 05:22] LABS: BASOPHILS 0.8 % (0-2); EOSINOPHILS 1.3 % (0-6); HEMATOCRIT 36.4 % (35.0-50.0); HEMOGLOBIN 11.4 g/dL (12.0-18.0); LYMPHOCYTES 14.8 % (24-44); MCH 24.3 (27-36); MCHC 31.4 g/dl (30-36); MCV 77.3 fl (81-99); MONOCYTES 10.7 % (0-12); NEUTROPHILS 72.4 % (39-80); PLATELET COUNT 261 K/uL (140-440); RDW 15.7 (10.5-15.0)
[2023-12-16 05:38] LABS: ALBUMIN 2.3 g/dL (3.4-5.0); ALBUMIN/GLOBULIN RATIO 0.59 (1.1-2.4); ANION GAP 11.8 (7-21); BILIRUBIN, TOTAL 0.7 ng/dL (0.2-1.0); BUN/CREATININE RATIO 18.91 (6.0-28.6); CALCIUM 8.6 mg/dL (8.5-10.1); CREATININE, SERUM 0.74 mg/dL (0.70-1.30); MAGNESIUM 1.8 mg/dL (1.8-2.4); PHOSPHORUS, INORGANIC 3.1 mg/dL (2.5-4.9); POTASSIUM 2.8 mmol/L (3.5-5.1); PROTEIN, TOTAL 6.2 g/dL (6.4-8.2)
[2023-12-16] MEDS ORDERED: POTASSIUM CHLORIDE 40 MEQ,LIDOCAINE HCL 1% 40 MG in DEXTROSE 5% 250 ML IV ONE (09:00)
[2023-12-16] MEDS ORDERED: TRAZODONE HCL 50 MG TAB PO PRN (20:00)
[2023-12-16] MEDS ORDERED: MELATONIN 3 MG TAB PO PRN (20:00)
[2023-12-17] VITALS (7 sets, daily range): BP systolic 123–146; BP diastolic 67–74
[2023-12-17 05:52] LABS: BASOPHILS 0.9 % (0-2); EOSINOPHILS 1.3 % (0-6); HEMATOCRIT 35.1 % (35.0-50.0); HEMOGLOBIN 11.1 g/dL (12.0-18.0); LYMPHOCYTES 15.4 % (24-44); MCH 24.2 (27-36); MCHC 31.5 g/dl (30-36); MCV 76.7 fl (81-99); MONOCYTES 11.6 % (0-12); NEUTROPHILS 70.8 % (39-80); PLATELET COUNT 271 K/uL (140-440); RBC 4.58 M/ul (4.3-5.7); RDW 15.3 (10.5-15.0)
[2023-12-17 06:10] LABS: ANION GAP 11.8 (7-21); BUN/CREATININE RATIO 19.17 (6.0-28.6); CALCIUM 8.7 mg/dL (8.5-10.1); CREATININE, SERUM 0.73 mg/dL (0.70-1.30); MAGNESIUM 1.6 mg/dL (1.8-2.4); PHOSPHORUS, INORGANIC 3.6 mg/dL (2.5-4.9); POTASSIUM 2.8 mmol/L (3.5-5.1)
[2023-12-17] MEDS ORDERED: ACETAMINOPHEN 500 MG TAB PO PRN (06:45)
[2023-12-17] MEDS ORDERED: POTASSIUM CHLORIDE 10 MEQ TABCR PO ONE (08:15)
[2023-12-17] MEDS ORDERED: POTASSIUM CHLORIDE 40 MEQ,LIDOCAINE HCL 1% 40 MG in DEXTROSE 5% 250 ML IV ONE (08:15)
[2023-12-17] MEDS ORDERED: MAGNESIUM SULFATE 2 GM/50 ML BAG IV ONE (08:15)
[2023-12-17] MEDS ORDERED: DICYCLOMINE HCL 20 MG/2 ML VIAL IM SCH (09:00)
[2023-12-17] MEDS ORDERED: ISOSORBIDE DINITRATE 10 MG TAB PO SCH (09:00)
[2023-12-17] MEDS ORDERED: DICYCLOMINE HCL 20 MG/2 ML VIAL ONE (10:20)
[2023-12-18 05:56] LABS: HEMATOCRIT 38.2 % (35.0-50.0); HEMOGLOBIN 12.5 g/dL (12.0-18.0); MCH 24.6 (27-36); MCHC 32.7 g/dl (30-36); MCV 75.3 fl (81-99); PLATELET COUNT 354 K/uL (140-440); RBC 5.07 M/ul (4.3-5.7); RDW 15.6 (10.5-15.0)
[2023-12-18 06:00] VITALS: BP 128/62
[2023-12-18 06:13] LABS: ANION GAP 16.7 (7-21); BUN/CREATININE RATIO 18.18 (6.0-28.6); CALCIUM 9.5 mg/dL (8.5-10.1); CREATININE, SERUM 0.99 mg/dL (0.70-1.30); MAGNESIUM 1.7 mg/dL (1.8-2.4); PHOSPHORUS, INORGANIC 4.5 mg/dL (2.5-4.9); POTASSIUM 2.7 mmol/L (3.5-5.1)
[2023-12-18 06:22] LABS: BANDS, MANUAL DIFF 34; LYMPHOCYTES, MANUAL DIFF 9; MONOCYTES, MANUAL DIFF 8; NEUTROPHILS, MANUAL DIFF 49
[2023-12-18] MEDS ORDERED: POTASSIUM CHLORIDE 40 MEQ,LIDOCAINE HCL 1% 40 MG in DEXTROSE 5% 250 ML IV ONE (08:30)
[2023-12-18] MEDS ORDERED: MAGNESIUM SULFATE 2 GM/50 ML BAG IV ONE (08:30)
[2023-12-18] MEDS ORDERED: POTASSIUM BICARBONATE/CIT AC 20 MEQ TABEF PO ONE (08:30)
[2023-12-18 09:54] VITALS: BP 161/71
[2023-12-18 13:15] VITALS: BP 143/75
[2023-12-18] MEDS ORDERED: INSULIN LISPRO 100 UNIT/ML ML SUB-Q SCH (14:00)
[2023-12-18] MEDS ORDERED: IBLOOD GLUCOSE TEST STRIP 1 EA TEST VI SCH (14:00)
[2023-12-18] MEDS ORDERED: METOPROLOL TARTRATE 5 MG/5 ML VIAL IV SCH (14:00)
[2023-12-18 14:07] VITALS: BP 159/73
[2023-12-18 19:21] LABS: IMMUNOGLOBULIN E 98 kU/L (<=214)
[2023-12-18] MEDS ORDERED: HEParin SOD (PORCINE) 5,000 UNIT/ML SDV SUB-Q SCH (21:00)
[2023-12-19 01:31] LABS: FOLATE,SERUM 9.5 ng/mL (>=5.9)
== END 2023-12-18 14:30 | disposition short-term general hospital (02) | DRG 641 ==
LOC: ED 09:47 → CCU 12:24 → MS 12-14 13:35
PROVIDERS: Emergency Medicine; Family Medicine; Student in an Organized Health Care Education/Training Program; ADMIT Student in an Organized Health Care Education/Training Program; ATTEND Student in an Organized Health Care Education/Training Program
DX: E83.42 Hypomagnesemia (principal); K56.7 Ileus, unspecified; K56.609 Unspecified intestinal obstruction, unspecified as to partial versus complete obstruction; E83.51 Hypocalcemia; E87.6 Hypokalemia; R13.19 Other dysphagia; E89.0 Postprocedural hypothyroidism; E66.9 Obesity, unspecified; Z66 Do not resuscitate; M25.551 Pain in right hip; K22.2 Esophageal obstruction; M54.9 Dorsalgia, unspecified; G89.29 Other chronic pain; E78.00 Pure hypercholesterolemia, unspecified; I48.91 Unspecified atrial fibrillation; E11.9 Type 2 diabetes mellitus without complications; I10 Essential (primary) hypertension; K21.9 Gastro-esophageal reflux disease without esophagitis; G47.33 Obstructive sleep apnea (adult) (pediatric); E83.39 Other disorders of phosphorus metabolism; Z86.718 Personal history of other venous thrombosis and embolism; K76.9 Liver disease, unspecified; K52.9 Noninfective gastroenteritis and colitis, unspecified; Z79.01 Long term (current) use of anticoagulants; Z87.891 Personal history of nicotine dependence; Z98.890 Other specified postprocedural states; Z79.84 Long term (current) use of oral hypoglycemic drugs; Z79.890 Hormone replacement therapy; Z79.899 Other long term (current) drug therapy; Z68.34 Body mass index [BMI] 34.0-34.9, adult
CPT/HCPCS: 36415; 51798; 71045; 71275; 73502; 74018; 74019; 74174; 80048; 80053; 81001; 82607; 82746; 82785; 83036; 83735; 83880; 84100; 84484; 85025; 85060; 93005; 93010; 94660; 94760; 94762; 97116; 97161; 97166; 97530; 97535; 99285-25; A9270; J0500; J0612; J1170; J1815; J2765; J3475; J3480; J3490; J7060; J7121; Q9967